=== PATIENT | female | born 1930 | race Caucasian/White ===

== ENCOUNTER → 2016-12-27 | Outpatient (CLI) | payer MEDICARE, MEDICAID ==
--- NOTE | 2016-12-27 11:26 | RAD ---
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 Osteopenia. No fracture or acute osteochondral lesion Interphalangeal joint space narrowing on a degenerative basis. Small marginal osteophytes. No inflammatory arthritis or diagnostic soft tissue abnormality Electronically signed by: Tani Seals MD 12/27/2016 11:24 AM CDT
== END | disposition home or self-care (01) ==
LOC: RAD 09:05
PROVIDERS: ATTEND Orthopaedic Surgery
DX: M79.641 Pain in right hand (principal)

== ENCOUNTER 2016-12-29 05:39 | Outpatient (CLI) | payer MEDICARE, MEDICAID ==
[2016-12-29] MEDS ORDERED: ceFAZolin SODIUM 1 GM VIAL ONE ×2 (06:04→07:46)
[2016-12-29] MEDS ORDERED: LACTATED RINGERS 1,000 ML ONE (06:04)
[2016-12-29] MEDS ORDERED: SODIUM CHL 0.9% 50ML MIN-BAG+ 50 ML IVPB ONE (06:04)
[2016-12-29] MEDS ORDERED: BUPIVACAINE 0.25% INJ 30 ML VIAL INJ ONE (07:45)
[2016-12-29] MEDS ORDERED: VANCOMYCIN HCL INJ 1,000 MG VIAL IVPB ONE (07:46)
[2016-12-29] MEDS ORDERED: LIDOCAINE 1% 50 ML VIAL INJ ONE (07:46)
[2016-12-29] MEDS ORDERED: CLINDAMYCIN IV 900MG 50 ML IVPB ONE (08:53)
[2016-12-29 15:02] VITALS: BP 185/73; TEMP 97.8; O2SAT 96
== END 2016-12-29 09:35 | disposition home or self-care (01) ==
LOC: AMB 05:39 → EDSTATUS 11:15
PROVIDERS: ATTEND Orthopaedic Surgery
DX: Z01.812 Encounter for preprocedural laboratory examination (principal); Z01.818 Encounter for other preprocedural examination
CPT/HCPCS: 87070; J0690; J3490; J7050; J7120

== ENCOUNTER → 2018-11-12 | Outpatient (CLI) | payer MEDICARE, MEDICAID | LOC: ECHO 10:00 | PROVIDERS: ATTEND Nurse Practitioner | DX: R00.2 Palpitations (principal) ==